=== PATIENT | male | born 1990 | race African-American/Black ===

== ENCOUNTER 2022-02-22 21:52 | Inpatient (IN) ==
[2022-02-22 22:33] LABS: Basophils # 0.1 10*3/uL (0.0-0.2); Basophils % 0.8 % (0.0-0.8); Eosinophils # 0.4 10*3/uL (0.0-0.87); Eosinophils % 5.2 % (0.00-10.9); Hematocrit 37.7 VOL% (42.0-52.0); Hemoglobin 12.3 GM/DL (14.0-18.0); Immature Granulocytes % 0.1 %; Immature Granulocytes Absolute 0.01 #; Lymphocytes # 2.3 10*3/uL (1.4-4.0); Lymphocytes % 30.4 % (21.2-54.2); Mean Corpuscular HGB Conc 32.6 GM/DL (32-36); Mean Corpuscular Volume 88.5 FL (87-102); Mean Platelet Volume 10.7 FL (9.6-12.0); Monocytes # 0.9 10*3/uL (0.11-0.8); Monocytes % 12.3 % (1.7-12.7); Neutrophils % 51.2 % (38.7-73.9); Platelet Count 242 T/CUMM (130-400); Red Blood Count 4.26 MC/CUMM (3.8-5.5); Red Cell Distribution Width 13.8 % (9.3-17.3); White Blood Count 7.5 T/CUMM (4-12)
[2022-02-22 22:35] LABS: Albumin 3.5 G/DL (3.4-5.0); Bilirubin,Total 0.5 MG/DL (0.20-1.00); Calcium 9.2 MG/DL (8.5-10.1); Osmolality,Calculated 282.1 MOS/KG (273-304); Total Protein 7.5 G/DL (6.4-8.2)
[2022-02-22] MEDS ORDERED: ONDANSETRON 4 MG/2 ML VIAL IV PRN (23:38)
[2022-02-22] MEDS ORDERED: PROMETHAZINE 25 MG/1 ML VIAL IM PRN (23:38)
[2022-02-22] MEDS ORDERED: SODIUM CHLORIDE 0.9% 1,000 ML IV SCH (23:45)
[2022-02-23] MEDS ORDERED: MORPHINE 2 MG/1 ML SYRINGE IV PRN (00:31)
[2022-02-23] MEDS: LACTATED RINGERS 1,000 ML IV SCH ×2 (06:05→09:22)
[2022-02-23 06:46] LABS: Basophils # 0.1 10*3/uL (0.0-0.2); Basophils % 0.9 % (0.0-0.8); Eosinophils # 0.4 10*3/uL (0.0-0.87); Eosinophils % 8.1 % (0.00-10.9); Hematocrit 37.3 VOL% (42.0-52.0); Hemoglobin 12.1 GM/DL (14.0-18.0); Immature Granulocytes % 0.2 %; Immature Granulocytes Absolute 0.01 #; Lymphocytes # 2.1 10*3/uL (1.4-4.0); Lymphocytes % 37.7 % (21.2-54.2); Mean Corpuscular HGB Conc 32.4 GM/DL (32-36); Mean Corpuscular Volume 88.8 FL (87-102); Mean Platelet Volume 10.5 FL (9.6-12.0); Monocytes # 0.6 10*3/uL (0.11-0.8); Neutrophils % 42.1 % (38.7-73.9); Platelet Count 196 T/CUMM (130-400); Red Cell Distribution Width 13.8 % (9.3-17.3); White Blood Count 5.4 T/CUMM (4-12)
[2022-02-23] MEDS ORDERED: propofoL 200 MG/20 ML VIAL IV ONE (06:59)
[2022-02-23] MEDS ORDERED: ROCURONIUM 50 MG/5 ML VIAL IV ONE (06:59)
[2022-02-23] MEDS ORDERED: MIDAZOLAM 2 MG/2 ML VIAL ONE (06:59)
[2022-02-23] MEDS ORDERED: SUCCINYLCHOLINE 200 MG/10 ML VIAL ONE (06:59)
[2022-02-23] MEDS ORDERED: LIDOCAINE 2% 5 ML VIAL ONE (06:59)
[2022-02-23 07:04] LABS: Albumin 3.1 G/DL (3.4-5.0); Bilirubin,Total 0.7 MG/DL (0.20-1.00); Calcium 9.1 MG/DL (8.5-10.1); Total Protein 6.7 G/DL (6.4-8.2)
[2022-02-23] MEDS ORDERED: ETOMIDATE 20 MG/10 ML VIAL IV ONE (07:46)
[2022-02-23] MEDS: PANTOPRAZOLE 40 MG TABLET PO SCH (09:42)
[2022-02-23] MEDS: ACETAMINOPHEN 325 MG TABLET PO PRN (11:31)
[2022-02-23] MEDS ORDERED: ENOXAPARIN 40 MG/0.4 ML SYRINGE SUBCUT SCH (18:00)
[2022-02-23] MEDS: GABAPENTIN 300 MG CAPSULE PO SCH (21:47)
[2022-02-24 03:50] LABS: Basophils % 0.8 % (0.0-0.8); Eosinophils # 0.5 10*3/uL (0.0-0.87); Eosinophils % 10.2 % (0.00-10.9); Hemoglobin 12.6 GM/DL (14.0-18.0); Immature Granulocytes % 0.2 %; Immature Granulocytes Absolute 0.01 #; Lymphocytes # 2.2 10*3/uL (1.4-4.0); Lymphocytes % 42.8 % (21.2-54.2); Mean Corpuscular HGB Conc 32.3 GM/DL (32-36); Mean Corpuscular Volume 88.6 FL (87-102); Mean Platelet Volume 10.3 FL (9.6-12.0); Monocytes # 0.4 10*3/uL (0.11-0.8); Platelet Count 213 T/CUMM (130-400); Red Cell Distribution Width 13.3 % (9.3-17.3)
[2022-02-24 04:13] LABS: Calcium 9.1 MG/DL (8.5-10.1); Osmolality,Calculated 278.3 MOS/KG (273-304); Potassium 4.1 MMOL/L (3.5-5.1)
[2022-02-24] MEDS ORDERED: ERGOCALCIFEROL 50,000 UNIT CAPSULE PO SCH (08:00)
[2022-02-24] MEDS: PANTOPRAZOLE 40 MG TABLET PO SCH (09:02)
[2022-02-24] MEDS: GABAPENTIN 300 MG CAPSULE PO SCH (09:02)
[2022-02-24] MEDS: ACETAMINOPHEN 325 MG TABLET PO PRN (09:02)
[2022-02-24] MEDS ORDERED: hydrALAZINE 25 MG TABLET PO SCH (11:00)
[2022-02-24 12:16] VITALS: BP 152/97
[2022-02-24] MEDS ORDERED: MAGNESIUM CITRATE 300 ML BOTTLE PO ONE (14:22)
[2022-02-24] MEDS ORDERED: POLYETHYLENE GLYCOL POWDER 17 GM PACK PO SCH (15:00)
[2022-02-24] MEDS ORDERED: NORTRIPTYLINE 25 MG CAPSULE PO SCH (21:00)
[2022-02-24] MEDS ORDERED: ARIPiprazole 5 MG TABLET PO SCH (21:00)
== END 2022-02-24 17:38 | DRG 395 ==
LOC: N.ED 21:52 → N.3W 21:52 → SUATTDRO 23:38 → N.3W 02-23 02:00
PROVIDERS: ADMIT Internal Medicine; ATTEND Internal Medicine